=== PATIENT | female | born 1935 | race Caucasian/White ===

== ENCOUNTER 2018-02-21 12:49 | Emergency (ER) | payer OTHER ==
[~2018-02-21] VITALS: Ht 160 cm; Wt 74.8 kg
[~2018-02-21 12:49] MED LIST: ALBIPROI; ALBU.083IS IH; ALBU90OI INH; ALBU90OI61 INH; AMLO5; ASPI81EC PO; AZIT250 PO; AZIT500 PO; BENZ100A PO; CALCAVITDA PO; CEFD300 PO; DOCU100 PO; FAMO20 PO; FERR325 PO; FISH1000 PO; FLUSAL1005 IH; HYDACE5 PO; HYDGUAL120 PO; IPRAIS NEB; LEVA.63IS; LEVO750 PO; LEVSOD100; LEVSOD112 PO; LORPSEER24; LOVA40 PO; MULVITA PO; NITR100CA PO; ONDA4 PO; OXYGEN; PANT40; POLY17UD PO; PRED10; PRED20 PO; PROC10 PO; Prednisone10 MG PO; RXHYDGUAS PO; SPIHYD; TERB2.5; TIOT18 IH; TRIA80TC TOP; TRIHYD253A PO; TRIHYD5075 PO
[2018-02-21] MEDS ORDERED: DILT180 PO (14:44)
[2018-02-21] MEDS ORDERED: Fish Oil 1,0001 EAC3 PO (14:44)
[2018-02-21] MEDS ORDERED: BIOTIN2500 MCG PO (14:44)
[2018-02-21] MEDS ORDERED: Hair, Skin & N1 EACH PO (14:45)
[2018-02-21] MEDS ORDERED: CALCIUM GLUCONA50 MG PO (14:45)
[2018-02-21] MEDS ORDERED: VITAMIN D31000 UNIT PO (14:45)
[2018-02-21] MEDS ORDERED: AMOX875 PO (14:47)
[2018-02-21 14:48] LABS: BASOPHILS ABSOLUTE AUTO 0.01 K/mm3 (0.00-0.23); BASOPHILS PERCENT AUTO 0 % (0-2); EOSINOPHILS ABSOLUTE AUTO 0.29 K/mm3 (0.00-0.68); EOSINOPHILS PERCENT AUTO 2 % (0-6); Hematocrit 37.3 % (33.0-51.0); Hemoglobin 12.5 g/dL (11.5-16.0); IMMATURE GRAN ABSOLUTE AUTO 0.06 K/mm3 (0.00-0.10); IMMATURE GRAN PERCENT AUTO 0 % (0-1); LYMPHOCYTES ABSOLUTE AUTO 0.58 K/mm3 (0.84-5.20); LYMPHOCYTES PERCENT AUTO 4 % (21-46); MONOCYTES PERCENT AUTO 4 % (4-13); Mean Corpuscular HGB 29.2 pg (26.0-34.0); Mean Corpuscular HGB Conc 33.5 g/dL (31.5-36.5); Mean Corpuscular Volume 87 fL (80-100); Mean Platelet Volume 9.4 fL (9.1-12.4); NEUTROPHILS ABSOLUTE AUTO 13.12 K/mm3 (1.96-9.15); NEUTROPHILS PERCENT AUTO 89 % (41-73); Platelet Count 317 K/mm3 (150-400); RDW Coefficient Variation 12.2 % (11.7-14.2); RDW Standard Deviation 39.5 fL (35.1-46.3); Red Blood Cell Count 4.28 M/mm3 (3.80-5.20); White Blood Cell Count 14.66 K/mm3 (4.00-11.30)
[2018-02-21 15:15] LABS: Alanine Aminotransfer (ALT/SGP 33 U/L (12-78); Albumin, Blood 3.2 g/dL (3.4-5.0); Albumin/Globulin Ratio 1.1 (0.8-1.8); Alk Phos 46 U/L (50-136); Anion Gap 9 mmol/L (6-16); Aspartate Aminotrans (AST/SGOT 14 U/L (12-37); Bilirubin, Total 0.4 mg/dL (0.1-1.0); Blood Urea Nitrogen 22 mg/dL (8-24); Bun/Creatinine Ratio 32.2 (12.0-20.0); CO2, Blood 26 mmol/L (21-32); Calcium, Blood 8.3 mg/dL (8.5-10.1); Chloride, Blood 103 mmol/L (98-108); Creatinine, Blood 0.68 mg/dL (0.40-1.00); Globulin, Blood 2.8 g/dL (2.2-4.0); Glomerular Filtration Rate >60 (60-); Glucose, Blood 95 mg/dL (70-99); Potassium, Blood 3.4 mmol/L (3.5-5.5); Sodium, Blood 138 mmol/L (136-145); Troponin I <0.015 ng/mL (0.000-0.040)
[2018-02-21] MEDS ORDERED: Pepcid20 MG PO (16:43)
[2018-02-21] MEDS ORDERED: Prednisone20 MG PO (16:43)
[2018-02-21] MEDS ORDERED: BENADRYL25 MG PO (16:43)
[2018-02-21] MEDS ORDERED: Zithromax250 MG PO (16:43)
== END 2018-02-21 17:42 | disposition home or self-care (01) ==
LOC: ER 12:49
PROVIDERS: Emergency Medicine
DX: L50.0 Allergic urticaria (principal); J44.1 Chronic obstructive pulmonary disease with (acute) exacerbation; T38.0X5A Adverse effect of glucocorticoids and synthetic analogues, initial encounter; T36.0X5A Adverse effect of penicillins, initial encounter; Z88.0 Allergy status to penicillin; Z88.2 Allergy status to sulfonamides; Z88.1 Allergy status to other antibiotic agents; Z79.899 Other long term (current) drug therapy; Z79.82 Long term (current) use of aspirin
CPT/HCPCS: 36415; 71046; 80053; 84484; 85025; 93005; 93010; 96374; 96375; 99283; J1200; J3490

== ENCOUNTER → 2018-06-23 | Outpatient (CLI) | payer OTHER ==
[~2018-06-23] MED LIST changes: +AMOX875 PO; +BENADRYL25 MG PO; +BIOTIN2500 MCG PO; +CALCIUM GLUCONA50 MG PO; +DILT180 PO; +Fish Oil 1,0001 EAC3 PO; +Hair, Skin & N1 EACH PO; +Pepcid20 MG PO; +Prednisone20 MG PO; +VITAMIN D31000 UNIT PO; +Zithromax250 MG PO
== END | disposition home or self-care (01) ==
LOC: PLD 11:18 → LAB SHORT 11:18
DX: D48.5 Neoplasm of uncertain behavior of skin (principal)
CPT/HCPCS: 88305

== ENCOUNTER → 2018-12-29 | Outpatient (CLI) | payer OTHER | END | disposition home or self-care (01) | LOC: PLD 14:54 → LAB SHORT 14:54 | DX: L57.0 Actinic keratosis (principal) | CPT/HCPCS: 88305 ==

== ENCOUNTER → 2019-10-11 | Outpatient (CLI) | payer OTHER ==
[2019-10-12 07:01] LABS: Stool Occult Bld Immuno 1 Negative (NEGATIVE); Stool Occult Bld Immuno 2 Negative (NEGATIVE); Stool Occult Bld Immuno 3 Positive (NEGATIVE)
== END | disposition home or self-care (01) ==
LOC: LAB SHORT 10:54 → LAB 10:54 → LAB FUT 10-06 13:25
PROVIDERS: Family Medicine
DX: D64.9 Anemia, unspecified (principal)
CPT/HCPCS: 82274

== ENCOUNTER 2020-02-17 09:12 | Day surgery (SDC) | payer OTHER ==
[~2020-02-17] VITALS: Ht 160 cm; Wt 66.4 kg
--- NOTE | 2020-02-17 10:09 | NUR ---
02/17/20 1009 Alex Lewis CALL LIGHT WITHIN REACH
== END 2020-02-17 11:43 | disposition home or self-care (01) ==
LOC: ORSCSDS 09:12
PROVIDERS: Student in an Organized Health Care Education/Training Program
PROC: 0DBP8ZX Excision of Rectum, Via Natural or Artificial Opening Endoscopic, Diagnostic (ICD-10-PCS; principal; 2020-02-17 10:45)
PROC: 0DBH8ZX Excision of Cecum, Via Natural or Artificial Opening Endoscopic, Diagnostic (ICD-10-PCS; principal; 2020-02-17 10:45)
DX: R19.5 Other fecal abnormalities (principal); D12.0 Benign neoplasm of cecum; K62.1 Rectal polyp; K64.4 Residual hemorrhoidal skin tags; K64.8 Other hemorrhoids; D64.9 Anemia, unspecified; R10.9 Unspecified abdominal pain; J44.9 Chronic obstructive pulmonary disease, unspecified; Z80.0 Family history of malignant neoplasm of digestive organs; I10 Essential (primary) hypertension; E78.5 Hyperlipidemia, unspecified; E03.9 Hypothyroidism, unspecified; Z79.82 Long term (current) use of aspirin; Z79.899 Other long term (current) drug therapy; Z87.891 Personal history of nicotine dependence
CPT/HCPCS: J2704; J7120

== ENCOUNTER 2021-02-14 05:50 | Day surgery (SDC) | payer OTHER ==
[~2021-02-14] VITALS: Ht 160 cm; Wt 70.0 kg
[~2021-02-14 05:50] MED LIST changes: -ASPI81EC PO; +Aspir 8181 MG PO; +CALCIUM 500 MG1 EACH; +DILT120ERA PO; +FERSU300; +FISH OIL 1,2001 EAC1 PO; -FLUSAL1005 IH; +FLUT1DIS5 INH; -Fish Oil 1,0001 EAC3 PO; +GLUCHON; +LEVSOD75 PO; +Lovastatin20 MG PO; +MAXZIDE PO; -TRIHYD5075 PO
[2021-02-14] MEDS ORDERED: ACET500 PO (06:38)
--- NOTE | 2021-02-14 09:26 | NUR ---
PT PREVIOUSLY BROUGHT BACK TO RECOVERY ROOM, PENDING ADMISSION TO PCU, FAMILY PRESENT TO BEDSIDE. DR. ARELLANO IN ROOM TO SPEAK WITH PATIENT AND FAMILY ABOUT PLAN OF CARE. PT TOLERATES PO FLUIDS WITH NO DIFFICULTIES. LEFT ARM PLACED INTO SLING. PRESSURE DRESSING REMAINS IN PLACE. CALL LIGHT IN REACH. WILL CONTINUE TO MONITOR LEFT CHEST PACEMAKER INCISION.
--- NOTE | 2021-02-14 11:16 | NUR ---
PT OFFERED ICE PACK FOR LEFT SHOULDER/CHEST, DENIES AT THIS TIME. FAMILY REMAINS AT BEDSIDE. VSS. CALL LIGHT IN REACH. HAS NO NEEDS AT THIS TIME.
--- NOTE | 2021-02-14 18:29 | NUR ---
SHIFT NOTE PT AR[facility]IVED FROM [facility] THIS AFTERNOON POST DUAL CHAMBER PACE [employer]KER PLACEMENT. PT ARRIVES AMBULATORY, A/O X3, DENIES CP, SOB. PT DID REPORT LT SHOUDLER PAIN WHICH WAS TREATED WITH TYLENOL PO. PT VISITING WITH FAMILY AT BEDSIDE, VSS. PRESSURE BANDAGE INPLACE OVER PACEMAKER SITE
--- NOTE | 2021-02-15 05:30 | NUR ---
SHIFT SUMMARY PT WAS ALERT, ORIENTED, AND COOPERATIVE WITH CARE. PT HAD MODERATE PAIN THAT WAS CONTROLLED WITH ACETAMINOPHEN AND PT WAS ABLE TO FALL ASLEEP. VITALS WERE STABLE WITH BP 130-140'S SYSTOLIC. HR 60'S WITH INTERMITTENT PACED BEATS. O2 SATS >90% ON ROOM AIR. DRESSING C/D/I, ARM IN SING T/O THE NIGHT WITH PT FOLLOWING DIRECTIONS ON LIMITED MOVEMENT. PT STATES SHE IS RECOVERING WELL, SHE HAD A QUIET UNEVENTFUL NIGHT.
--- NOTE | 2021-02-15 07:55 | NUR ---
rack puncher did interrogation of device. Dr. Priest here at 0715 to see the patient. Xray has been done, per noc shift RN [place]. PRessure dressing inctact, in place and pt is alert, oriented, and states "only a little bit" of pain in her left chest wall surgical site. At this time she is sitting up eating breakfast.
--- NOTE | 2021-02-15 11:10 | NUR ---
The pt was seen by Dr. Priest along with Lorne, [employer] sales representative door to door who interrogated the pacemaker at the bedside. Dr. Priest removed the surgical pressure dressing and applied a small non-adherent dressing and secured it with Medipore tape in an "+" fashion. NO bleeding, no active drainage noted. Discharge instructions were reviewed with the patient, and educational materials for follow up appointments, pacemaker general implantation information, activity restrictions, and keeping the wound clean and dry until the wound check next week, as well as follow up at the pacemaker clinic were all provided and reviewed with the pt and her two visitors at the bedside. IV in the left antecubital space was removed, and site WNL. Telemetry box removed. PT was assisted to get dressed, and sling to the left arm was replaced. PT was taken out by MEDICAL SUPPLY TECHNICIAN to private vehicle for discharge home.
== END 2021-02-15 10:00 | disposition home or self-care (01) ==
LOC: MHTC 05:50 → PCU 13:38 → MHTC 02-15 10:00
DX: I49.5 Sick sinus syndrome (principal); I45.5 Other specified heart block; I47.1 Supraventricular tachycardia; I48.0 Paroxysmal atrial fibrillation; I11.9 Hypertensive heart disease without heart failure; E78.5 Hyperlipidemia, unspecified; J44.9 Chronic obstructive pulmonary disease, unspecified; I37.1 Nonrheumatic pulmonary valve insufficiency; E03.9 Hypothyroidism, unspecified; D64.9 Anemia, unspecified; K44.9 Diaphragmatic hernia without obstruction or gangrene; Z88.0 Allergy status to penicillin; Z88.1 Allergy status to other antibiotic agents; Z88.2 Allergy status to sulfonamides; Z88.8 Allergy status to other drugs, medicaments and biological substances; Z96.642 Presence of left artificial hip joint
CPT/HCPCS: 33208; 71045; 71046; 76937; 94640; 99152; 99153; A9270; C1781; C1785; C1894; C1898; J1644; J2250; J3010; J3370; J7030; J7040

== ENCOUNTER 2021-12-04 08:03 | Day surgery (SDC) | payer OTHER ==
[~2021-12-04] VITALS: Ht 162.6 cm; Wt 68.7 kg
[~2021-12-04 08:03] MED LIST changes: +ACET500 PO; +CALCIUM 500 MG PO; -CALCIUM 500 MG1 EACH; -FERSU300; +FERSU300 PO; -GLUCHON; +GLUCHON PO; +MIRALAX17 GM PO; +Ventolin5 MG/1 ML INH
[2021-12-04] MEDS ORDERED: ASPI81CH PO (09:27)
--- NOTE | 2021-12-04 12:47 | NUR ---
12/04/21 Vianey Heller UPON EXTUBATION, STAFF NOTICED PATIENT HAD BLACKENED/PURPLISH COLOR TAYLOR ON HER EYELIDS SPECIFICALLY THE INSIDE CORNERS WHERE EYE PROTECTION WAS PLACED FOR SURGERY NO PREVIOUS COLOR CHANGES OF THE EYELIDS WERE NOTED PRIOR TO SURGERY START, DOCTOR WAS NOTIFIED.
--- NOTE | 2021-12-04 13:10 | NUR ---
RESTING QUIETLY, VSS, DSG DRY AND INTACT, XRAY DONE. PAS ON
[2021-12-04] MEDS ORDERED: Percocet 5-3251 EACH PO (17:13)
[2021-12-05 05:24] LABS: BASOPHILS PERCENT AUTO 0 % (0-2); EOSINOPHILS PERCENT AUTO 0 % (0-6); Hematocrit 33.2 % (33.0-51.0); IMMATURE GRAN ABSOLUTE AUTO 0.05 K/mm3 (0.00-0.10); IMMATURE GRAN PERCENT AUTO 1 % (0-1); LYMPHOCYTES ABSOLUTE AUTO 0.33 K/mm3 (0.84-5.20); LYMPHOCYTES PERCENT AUTO 3 % (21-46); MONOCYTES ABSOLUTE AUTO 0.27 K/mm3 (0.16-1.47); MONOCYTES PERCENT AUTO 3 % (4-13); Mean Corpuscular HGB 30.7 pg (26.0-34.0); Mean Corpuscular HGB Conc 33.1 g/dL (31.5-36.5); Mean Corpuscular Volume 93 fL (80-100); Mean Platelet Volume 10.7 fL (9.1-12.4); NEUTROPHILS ABSOLUTE AUTO 9.34 K/mm3 (1.96-9.15); NEUTROPHILS PERCENT AUTO 94 % (41-73); Platelet Count 206 K/mm3 (150-400); RDW Coefficient Variation 13.1 % (11.7-14.2); RDW Standard Deviation 44.8 fL (35.1-46.3); Red Blood Cell Count 3.58 M/mm3 (3.80-5.20); White Blood Cell Count 9.99 K/mm3 (4.00-11.30)
--- NOTE | 2021-12-05 05:35 | NUR ---
SHIFT SUMMARY PT S/P LEFT KNEE REPLACEMENT. PT OVERALL HAS DONE WELL, PT REPORTS THAT HER PAIN IS MINIMAL. PT REPORTS SOME OCCASIONAL TINGLING AND SPASMS IN LEFT LEG. BUT DENIES NUMBESS, PT ABLE TO WIGGLE TOES AND REPORTS SENSATION. DRESSING C/D/I. CRYOTHERAPY, SCD'S AND PATY'S IN PLACE T/O SHIFT. PT REPORTED DIZZINESS WITH AMBULATION AT THE START OF THE SHIFT, BUT DID NOT REPORT DIZZINESS WHEN SHE AMBULATED FOR THE SECOND TIME THIS SHIFT. PT WALKS WELL WITH SBA AND FWW. VITALS ARE STABLE. PLAN IS FOR DISCHARGE TODAY. BED IN LOWEST POSITION, CALL LIGHT WITHIN REACH.
[2021-12-05 05:49] LABS: Anion Gap 8 mmol/L (6-16); Blood Urea Nitrogen 25 mg/dL (8-24); Bun/Creatinine Ratio 34.4 (12.0-20.0); CO2, Blood 26 mmol/L (21-32); Calcium, Blood 8.9 mg/dL (8.5-10.1); Chloride, Blood 101 mmol/L (98-108); Creatinine, Blood 0.73 mg/dL (0.40-1.00); Glomerular Filtration Rate >60 (60-); Glucose, Blood 154 mg/dL (70-99); Potassium, Blood 4.2 mmol/L (3.5-5.5); Sodium, Blood 135 mmol/L (136-145)
--- NOTE | 2021-12-05 15:14 | NUR ---
DISCHARGE PT HAS CLEARED THERAPY. PAIN WELL CONTROLLED w/ NO NARCOTICS. EATING, DRINKING, & VOIDING WELL. DRSBRYANT, SCRIPT, & POLAR PACK SENT w/ PT. ESCORTED OUT VIA W/C.
== END 2021-12-05 15:16 | disposition home or self-care (01) ==
LOC: ORSCMMR 08:03 → ORD 09:45 → ORSCMMR 10:15 → SURS 13:28 → ORSCMMR 13:45
PROVIDERS: Orthopaedic Surgery
PROC: 8E0YXBZ Computer Assisted Procedure of Lower Extremity (ICD-10-PCS; 2021-12-04)
PROC: 0SRD0JZ Replacement of Left Knee Joint with Synthetic Substitute, Open Approach (ICD-10-PCS; principal; 2021-12-04 09:45)
DX: M17.12 Unilateral primary osteoarthritis, left knee (principal); M10.9 Gout, unspecified
CPT/HCPCS: 36415; 73560-LT; 80048; 85025; 97110; 97116; 97162; 97530; A9270; C1776; J0171; J0690; J0735; J1100; J1885; J2250; J2370; J2405; J2704; J2795; J3010; J7120

== ENCOUNTER 2022-07-27 16:36 | Emergency (ER) | payer OTHER ==
[~2022-07-27] VITALS: Ht 160 cm; Wt 66.2 kg
[~2022-07-27 16:36] MED LIST changes: +ASPI81CH PO; +Percocet 5-3251 EACH PO
[2022-07-27 21:08] LABS: BASOPHILS ABSOLUTE AUTO 0.03 K/mm3 (0.00-0.23); BASOPHILS PERCENT AUTO 0 % (0-2); EOSINOPHILS ABSOLUTE AUTO 0.18 K/mm3 (0.00-0.68); EOSINOPHILS PERCENT AUTO 2 % (0-6); Hematocrit 37.9 % (33.0-51.0); IMMATURE GRAN ABSOLUTE AUTO 0.01 K/mm3 (0.00-0.10); IMMATURE GRAN PERCENT AUTO 0 % (0-1); LYMPHOCYTES ABSOLUTE AUTO 0.86 K/mm3 (0.84-5.20); LYMPHOCYTES PERCENT AUTO 10 % (21-46); MONOCYTES ABSOLUTE AUTO 0.78 K/mm3 (0.16-1.47); MONOCYTES PERCENT AUTO 10 % (4-13); Mean Corpuscular HGB 30.4 pg (26.0-34.0); Mean Corpuscular HGB Conc 34.3 g/dL (31.5-36.5); Mean Corpuscular Volume 89 fL (80-100); Mean Platelet Volume 12.3 fL (9.1-12.4); NEUTROPHILS ABSOLUTE AUTO 6.38 K/mm3 (1.96-9.15); NEUTROPHILS PERCENT AUTO 77 % (41-73); Platelet Count 273 K/mm3 (150-400); RDW Coefficient Variation 13.4 % (11.7-14.2); RDW Standard Deviation 43.7 fL (35.1-46.3); Red Blood Cell Count 4.27 M/mm3 (3.80-5.20); White Blood Cell Count 8.24 K/mm3 (4.00-11.30)
[2022-07-27 21:20] LABS: Albumin, Blood 3.5 g/dL (3.4-5.0); Albumin/Globulin Ratio 1.2 (0.8-1.8); Bilirubin, Total 0.6 mg/dL (0.1-1.0); Bun/Creatinine Ratio 32.2 (12.0-20.0); C-REACTIVE PROTEIN, EXT RANGE 1.74 mg/dL (0.000-0.300); Calcium, Blood 8.9 mg/dL (8.5-10.1); Creatinine, Blood 0.62 mg/dL (0.40-1.00); Potassium, Blood 4.1 mmol/L (3.5-5.5); Total Protein, Blood 6.5 g/dL (6.4-8.2)
== END 2022-07-27 22:10 | disposition home or self-care (01) ==
LOC: ER 16:36
PROVIDERS: Emergency Medicine
DX: R07.9 Chest pain, unspecified (principal); I10 Essential (primary) hypertension; J44.9 Chronic obstructive pulmonary disease, unspecified; Z79.899 Other long term (current) drug therapy; Z79.82 Long term (current) use of aspirin; Z79.890 Hormone replacement therapy; Z95.0 Presence of cardiac pacemaker; Z88.0 Allergy status to penicillin; Z88.1 Allergy status to other antibiotic agents; Z88.2 Allergy status to sulfonamides; Z88.8 Allergy status to other drugs, medicaments and biological substances; Z87.891 Personal history of nicotine dependence
CPT/HCPCS: 36415; 71045; 80053; 84484; 85025; 86140; 93005; 93010

== ENCOUNTER 2022-07-31 03:29 | Emergency (ER) | payer OTHER ==
[~2022-07-31] VITALS: Ht 160 cm; Wt 66.2 kg
[2022-07-31 03:55] LABS: BASOPHILS ABSOLUTE AUTO 0.02 K/mm3 (0.00-0.23); BASOPHILS PERCENT AUTO 0 % (0-2); EOSINOPHILS ABSOLUTE AUTO 0.32 K/mm3 (0.00-0.68); EOSINOPHILS PERCENT AUTO 3 % (0-6); Hematocrit 40.9 % (33.0-51.0); Hemoglobin 13.6 g/dL (11.5-16.0); IMMATURE GRAN ABSOLUTE AUTO 0.02 K/mm3 (0.00-0.10); IMMATURE GRAN PERCENT AUTO 0 % (0-1); LYMPHOCYTES ABSOLUTE AUTO 0.81 K/mm3 (0.84-5.20); LYMPHOCYTES PERCENT AUTO 7 % (21-46); MONOCYTES ABSOLUTE AUTO 0.85 K/mm3 (0.16-1.47); MONOCYTES PERCENT AUTO 8 % (4-13); Mean Corpuscular HGB 29.7 pg (26.0-34.0); Mean Corpuscular HGB Conc 33.3 g/dL (31.5-36.5); Mean Corpuscular Volume 89 fL (80-100); NEUTROPHILS ABSOLUTE AUTO 8.94 K/mm3 (1.96-9.15); NEUTROPHILS PERCENT AUTO 82 % (41-73); Platelet Count 295 K/mm3 (150-400); RDW Coefficient Variation 13.2 % (11.7-14.2); Red Blood Cell Count 4.58 M/mm3 (3.80-5.20); White Blood Cell Count 10.96 K/mm3 (4.00-11.30)
[2022-07-31 04:17] LABS: Bun/Creatinine Ratio 24.9 (12.0-20.0); Calcium, Blood 9.2 mg/dL (8.5-10.1); Creatinine, Blood 0.72 mg/dL (0.40-1.00); Potassium, Blood 3.7 mmol/L (3.5-5.5)
[2022-07-31] MEDS ORDERED: PRED20 PO ×2 (04:36→07:26)
[2022-07-31] MEDS ORDERED: DOXY100 PO ×2 (04:36→07:38)
[2022-07-31] MEDS ORDERED: GUAI600T33 PO ×2 (05:46→07:26)
== END 2022-07-31 07:44 | disposition home or self-care (01) ==
LOC: ER 03:29
PROVIDERS: Emergency Medicine
DX: J44.1 Chronic obstructive pulmonary disease with (acute) exacerbation (principal); I10 Essential (primary) hypertension; Z79.899 Other long term (current) drug therapy; Z79.82 Long term (current) use of aspirin; Z95.0 Presence of cardiac pacemaker; Z99.81 Dependence on supplemental oxygen; Z88.0 Allergy status to penicillin; Z88.1 Allergy status to other antibiotic agents; Z88.2 Allergy status to sulfonamides
CPT/HCPCS: 36415; 71045; 80048; 84484; 85025; 93005; 93010; 94640; 94664; J2930